=== PATIENT | female | born 1980 | race Caucasian/White ===

== ENCOUNTER 2018-10-20 13:42 | Emergency (ER) | payer OTHER ==
[~2018-10-20] VITALS: Ht 162.6 cm; Wt 74.8 kg
[2018-10-20] MEDS ORDERED: NEXIUM 24HR20 M1 (13:48)
[2018-10-20] MEDS ORDERED: ZANTAC300 MG (13:48)
[2018-10-20] MEDS ORDERED: PEPTO-BISMOL262 M1 (13:48)
== END 2018-10-20 21:42 | disposition home or self-care (01) ==
LOC: ER 13:42
DX: I88.0 Nonspecific mesenteric lymphadenitis (principal); N83.291 Other ovarian cyst, right side; R10.31 Right lower quadrant pain

== ENCOUNTER 2020-06-21 06:47 | Emergency (ER) | payer OTHER ==
[~2020-06-21] VITALS: Ht 160 cm; Wt 77.6 kg
[~2020-06-21 06:47] MED LIST: NEXIUM 24HR20 M1; PEPTO-BISMOL262 M1; ZANTAC300 MG
[2020-06-21] MEDS ORDERED: BISOPROLOL-HCT1 EACH (06:53)
[2020-06-21] MEDS ORDERED: OMEPRAZOLE20 M1 (06:53)
== END 2020-06-21 16:08 | disposition home or self-care (01) ==
LOC: ER 06:47
DX: K52.9 Noninfective gastroenteritis and colitis, unspecified (principal)